=== PATIENT | female | born 1930 | race Caucasian/White ===

== ENCOUNTER 2017-12-15 18:17 | Inpatient (IN) | payer MEDICARE, OTHER ==
[~2017-12-15] VITALS: Ht 152.4 cm; Wt 45.4 kg
[2017-12-15] MEDS ORDERED: Sodium Chloride 500ML 500 ML IV ONE (19:00)
[2017-12-15 19:28] VITALS: BP 145/95
[2017-12-15 19:29] LABS: BASOPHILS % (AUTO) 1.3 % (0.0-2.0); EOSINOPHILS % (AUTO) 1.2 % (0.0-3.0); HEMATOCRIT 44.9 % (37.0-47.0); HEMOGLOBIN 15.3 G/DL (12.0-16.0); LYMPHOCYTES % (AUTO) 24.2 % (20.0-45.0); MEAN CORPUSCULAR VOLUME 94 FL (80-99); MONOCYTES % (AUTO) 6.5 % (1.0-10.0); NEUTROPHILS % (AUTO) 66.8 % (45.0-75.0); PLATELET COUNT 208 K/UL (150-450); RED BLOOD COUNT 4.77 M/UL (4.20-5.40); RED CELL DISTRIBUTION WIDTH 11.5 % (11.6-14.8); WHITE BLOOD COUNT 6.7 K/UL (4.8-10.8)
[2017-12-15 19:35] VITALS: BP 123/47
[2017-12-15 19:49] LABS: ANION GAP 8 mmol/L (5-15); BLOOD UREA NITROGEN 27 mg/dL (7-18); CALCIUM 9.2 MG/DL (8.5-10.1); CARBON DIOXIDE 29 MMOL/L (21-32); CHLORIDE 104 MMOL/L (98-107); CREATININE 1.3 MG/DL (0.55-1.30); POTASSIUM 4.4 MMOL/L (3.5-5.1); SODIUM 141 MMOL/L (136-145)
[2017-12-15 20:13] LABS: ALANINE AMINOTRANSFERASE 50 U/L (12-78); ALBUMIN 3.8 G/DL (3.4-5.0); ALKALINE PHOSPHATASE 93 U/L (46-116); ASPARTATE AMINO TRANSFERASE 29 U/L (15-37); BILIRUBIN,TOTAL 0.3 MG/DL (0.2-1.0); CKMB 2.2 NG/ML (0.0-3.6); CREATINE KINASE 271 U/L (26-308)
[2017-12-15] MEDS ORDERED: Milk of Magnesia 30ml Ud ORAL PRN (20:30)
[2017-12-15] MEDS ORDERED: Zolpidem 5mg tab ORAL PRN (20:30)
[2017-12-15 20:49] LABS: APPEARANCE,URINE CLEAR; BILIRUBIN, URINE NEGATIVE (NEGATIVE); GLUCOSE, URINE (UA) NEGATIVE (NEGATIVE); KETONES,URINE NEGATIVE (NEGATIVE); LEUKOCYTE ESTERASE ,URINE 1+ (NEGATIVE); NITRITE,URINE NEGATIVE (NEGATIVE); PH,URINE 7 (4.5-8.0); PROTEIN,URINE NEGATIVE (NEGATIVE); UROBILINOGEN,URINE NORMAL MG/DL (0.0-1.0)
[2017-12-15 20:50] LABS: COLOR,URINE YELLOW
[2017-12-15 21:27] VITALS: BP 131/45
[2017-12-15 22:00] VITALS: BP 145/100
[2017-12-15] MEDS ORDERED: UNOBMED (22:02)
--- NOTE | 2017-12-15 22:26 | Emergency Room Report ---
History of Present Illness General Chief Complaint: Altered Mental Status Source: Family Member, Medical Record Present Illness HPI 87-year-old female presents ED for evaluation. Family at bedside states that patient is here because retirement facility would not accept her. Patient was transferred from [facility] to [facility]. [facility] would not accept the patient because she was "sick" and was complaining of pain. Daughter at bedside states that patient was transferred to [facility] because [place] is too far away for her to visit. Notes that patient has a UTI. States that patient was recently treated for UTI. Patient was also complaining of right arm pain. Denies any pain here. Denies any fevers or chills. Denies chest pain shortness of breath. No other aggravating relieving factors. Denies any other associated symptom Allergies: Coded Allergies: No Known Allergies (Unverified , 12/15/17) Patient History Past Medical History: HTN Past Surgical History: none Pertinent Family History: none Social History: Denies: smoking, alcohol use, drug use Last Menstrual Period: Post Now: No Immunizations: UTD Reviewed Nursing Documentation: PMH: Agreed, PSxH: Agreed Nursing Documentation-PMH Hx Hypertension: Yes Review of Systems All Other Systems: negative except mentioned in HPI Physical Exam Vital Signs Date Time Temp Pulse Resp B/P (MAP) Pulse Ox O2 Delivery O2 Flow Rate FiO2 12/15/17 18:36 98.8 100 20 157/129 99 Room Air 98.8 Sp02 EP Interpretation: reviewed, normal General Appearance: no apparent distress, alert, GCS 15, non-toxic Head: normocephalic, atraumatic Eyes: bilateral eye normal inspection, bilateral eye PERRL ENT: hearing grossly normal, normal pharynx, no angioedema, normal voice Neck: full range of motion, supple/symm/no masses Respiratory: chest non-tender, lungs clear, normal breath sounds, speaking full sentences Cardiovascular #1: regular rate, rhythm, no edema Cardiovascular #2: 2+ carotid (R), 2+ carotid (L), 2+ radial (R), 2+ radial (L) , 2+ dorsalis pedis (R), 2+ dorsalis pedis (L) Gastrointestinal: normal bowel sounds, non tender, soft, non-distended, no guarding, no rebound Rectal: deferred Genitourinary: normal inspection, no CVA tenderness Musculoskeletal: back normal, gait/station normal, normal range of motion, non- tender Neurologic: alert, oriented x3, responsive, motor strength/tone normal, sensory intact, speech normal Psychiatric: judgement/insight normal, memory normal, mood/affect normal, no suicidal/homicidal ideation Reflexes: 3+ bicep (R), 3+ bicep (L), 3+ tricep (R), 3+ tricep (L), 3+ knee (R) , 3+ knee (L) Skin: normal color, no rash, warm/dry, well hydrated Lymphatic: no adenopathy Medical Decision Making Diagnostic Impression: Primary Impression: Weakness Additional Impression: Encephalopathy ER Course Hospital Course 87-year-old female presenting to ED with generalized weakness. Differential retirement facility because she was "unstable" Differential diagnoses include: Pneumonia, UTI, sepsis, dehydration, SC/ unstable angina Clinical course Patient placed on stretcher. On community relations officer with stable vitals are ED course. After initial history and physical, I ordered labs, IV fluids, EKG, chest x-ray, blood cultures, UA. Labs - electrolytes ok, no leukocytosis, troponins negative, UA negative EKG - NSR, no acute ischemic changes interpreted by me CXR - no acute process Case discussed with Dr Bush and they agreed to admit patient to their service for further care and support I feel this is a highly complex case requiring extensive working including EKG/ Rhythm strip, Xray/CT/US, Blood/urine lab work, repeat exams while in ED, and administration of strong opiates/narcotics for pain control, admission to hospital or close patient follow up. Diagnosis - encephalopathy, generalized weakness Patient admitted to floor in serious condition Labs Test 12/15/17 19:13 12/15/17 20:36 White Blood Count 6.7 K/UL (4.8-10.8) Red Blood Count 4.77 M/UL (4.20-5.40) Hemoglobin 15.3 G/DL (12.0-16.0) Hematocrit 44.9 % (37.0-47.0) Mean Corpuscular Volume 94 FL (80-99) Mean Corpuscular Hemoglobin 32.1 PG (27.0-31.0) Mean Corpuscular Hemoglobin Concent 34.2 G/DL (32.0-36.0) Red Cell Distribution Width 11.5 % (11.6-14.8) Platelet Count 208 K/UL (150-450) Mean Platelet Volume 7.4 FL (6.5-10.1) Neutrophils (%) (Auto) 66.8 % (45.0-75.0) Lymphocytes (%) (Auto) 24.2 % (20.0-45.0) Monocytes (%) (Auto) 6.5 % (1.0-10.0) Eosinophils (%) (Auto) 1.2 % (0.0-3.0) Basophils (%) (Auto) 1.3 % (0.0-2.0) Sodium Level 141 MMOL/L (136-145) Potassium Level 4.4 MMOL/L (3.5-5.1) Chloride Level 104 MMOL/L (98-107) Carbon Dioxide Level 29 MMOL/L (21-32) Anion Gap 8 mmol/L (5-15) Blood Urea Nitrogen 27 mg/dL (7-18) Creatinine 1.3 MG/DL (0.55-1.30) Estimat Glomerular Filtration Rate mL/min (>60) Glucose Level 114 MG/DL (74-106) Lactic Acid Level 1.40 mmol/L (0.66-2.22) Calcium Level 9.2 MG/DL (8.5-10.1) Total Bilirubin 0.3 MG/DL (0.2-1.0) Aspartate Amino Transf (AST/SGOT) 29 U/L (15-37) Alanine Aminotransferase (ALT/SGPT) 50 U/L (12-78) Alkaline Phosphatase 93 U/L (46-116) Total Creatine Kinase 271 U/L (26-308) Creatine Kinase MB 2.2 NG/ML (0.0-3.6) Creatine Kinase MB Relative Index 0.8 Troponin I 0.005 ng/mL (0.000-0.056) Pro-B-Type Natriuretic Peptide 138 pg/mL (0-125) Total Protein 7.5 G/DL (6.4-8.2) Albumin 3.8 G/DL (3.4-5.0) Globulin 3.7 g/dL Albumin/Globulin Ratio 1.0 (1.0-2.7) Urine Color Yellow Urine Appearance Clear Urine pH 7 (4.5-8.0) Urine Specific [place] 1.010 (1.005-1.035) Urine Protein Negative (NEGATIVE) Urine Glucose (UA) Negative (NEGATIVE) Urine Ketones Negative (NEGATIVE) Urine Occult Blood Negative (NEGATIVE) Urine Nitrite Negative (NEGATIVE) Urine Bilirubin Negative (NEGATIVE) Urine Urobilinogen Normal MG/DL (0.0-1.0) Urine Leukocyte Esterase 1+ (NEGATIVE) Urine RBC 0-2 /HPF (0 - 2) Urine WBC 0-2 /HPF (0 - 2) Urine Squamous Epithelial Cells Occasional /LPF Urine Bacteria None /HPF (NONE) EKG Diagnostic Results Rate: normal Rhythm: NSR ST Segments: no acute changes ASA given to the pt in ED: No Rhythm Strip Diag. Results EP Interpretation: yes Rhythm: NSR, no PVC's, no ectopy Chest X-Ray Diagnostic Results Chest X-Ray Diagnostic Results : Chest X-Ray Ordered: Yes # of Views/Limited/Complete: 1 View Indication: Chest Pain EP Interpretation: Yes Interpretation: no consolidation, no effusion, no pneumothorax, no acute cardiopulmonary disease Impression: No acute disease Electronically Signed by: Electronically signed by Lalo Falcon MD Last Vital Signs Date Time Temp Pulse Resp B/P (MAP) Pulse Ox O2 Delivery O2 Flow Rate FiO2 12/15/17 21:27 98.8 90 21 131/45 100 Room Air 98.8 Status: improved Disposition: ADMITTED INPATIENT Condition: Serious Referrals: NON PHYSICIAN (PCP) LALO FALCON M.D. Dec 15, 2017 22:26
[2017-12-16] VITALS (7 sets, daily range): BP systolic 125–153; BP diastolic 52–111
[2017-12-16 08:38] LABS: ANION GAP 9 mmol/L (5-15); BLOOD UREA NITROGEN 19 mg/dL (7-18); CARBON DIOXIDE 26 MMOL/L (21-32); CHLORIDE 108 MMOL/L (98-107); CREATININE 1.2 MG/DL (0.55-1.30); SODIUM 143 MMOL/L (136-145)
--- NOTE | 2017-12-16 09:36 | Diagnostic Imaging Report ---
Indication: Shortness of breath Technique: One view of the chest Comparison: none Findings: There is elevation the right hemidiaphragm with right basilar atelectasis. The lungs and pleural spaces are clear otherwise. Heart size is normal. The aorta is tortuous and calcified. Impression: Elevated right hemidiaphragm with right basilar atelectasis No acute process otherwise
--- NOTE | 2017-12-16 10:18 | History & Physical ---
History and Physical History & Physicial HP dictated # [id number] RASHEED CHONG Dec 16, 2017 10:18
--- NOTE | 2017-12-16 11:20 | Consultation ---
History of Present Illness General Date patient seen: Dec 16, 2017 Chief Complaint: Altered Mental Status Present Illness HPI 87 yo female with hx of recurrent uti and dementia pw ams and agitation. the pt has cognitive impairment and is yelling. unable to provide history. poor insight and judgement. the pt perseverated that she is hungry and wants to have more food. Allergies: Coded Allergies: No Known Allergies (Unverified , 12/15/17) Medication History Miscellaneous Medications Unable to Obtain Medications (Unable To Obtain Meds), (Reported) Patient History Limited by: medical condition History Provided By: Patient, Medical Record, PMD Healthcare decision maker N Resuscitation status Full Code Advanced Directive on File No Past Medical/Surgical History Past Medical/Surgical History: (1) Weakness (2) Encephalopathy Review of Systems Psychiatric: Reports: see HPI, prior hx, anxiety, depressed feelings, emotional problems, hallucinations Physical Exam General Appearance: no apparent distress, alert, confused, agitated Last 24 Hour Vital Signs Date Time Temp Pulse Resp B/P (MAP) Pulse Ox O2 Delivery O2 Flow Rate FiO2 12/16/17 08:00 96.8 87 18 127/77 100 96.8 12/16/17 04:44 97.4 76 18 143/78 100 97.4 12/16/17 00:17 97.6 66 17 149/78 94 97.6 12/15/17 22:06 97.5 100 17 145/100 97 Room Air 97.5 12/15/17 22:00 97.5 100 17 145/100 97 97.5 12/15/17 21:27 98.8 90 21 131/45 100 Room Air 98.8 12/15/17 19:35 98.8 88 21 123/47 98 Room Air 98.8 12/15/17 19:28 98.8 88 21 145/95 100 Room Air 98.8 12/15/17 18:36 98.8 100 20 157/129 99 Room Air 98.8 Intake and Output 12/15/17 12/16/17 19:00 07:00 Intake Total 240 ml Output Total 250 ml Balance -10 ml Intake Oral 240 ml Output Urine Total 250 ml # Voids 3 Laboratory Tests Test 12/15/17 19:13 12/15/17 20:36 12/16/17 05:00 White Blood Count 6.7 K/UL (4.8-10.8) Red Blood Count 4.77 M/UL (4.20-5.40) Hemoglobin 15.3 G/DL (12.0-16.0) Hematocrit 44.9 % (37.0-47.0) Mean Corpuscular Volume 94 FL (80-99) Mean Corpuscular Hemoglobin 32.1 PG (27.0-31.0) H Mean Corpuscular Hemoglobin Concent 34.2 G/DL (32.0-36.0) Red Cell Distribution Width 11.5 % (11.6-14.8) L Platelet Count 208 K/UL (150-450) Mean Platelet Volume 7.4 FL (6.5-10.1) Neutrophils (%) (Auto) 66.8 % (45.0-75.0) Lymphocytes (%) (Auto) 24.2 % (20.0-45.0) Monocytes (%) (Auto) 6.5 % (1.0-10.0) Eosinophils (%) (Auto) 1.2 % (0.0-3.0) Basophils (%) (Auto) 1.3 % (0.0-2.0) Sodium Level 141 MMOL/L (136-145) 143 MMOL/L (136-145) Potassium Level 4.4 MMOL/L (3.5-5.1) 4.0 MMOL/L (3.5-5.1) Chloride Level 104 MMOL/L (98-107) 108 MMOL/L (98-107) H Carbon Dioxide Level 29 MMOL/L (21-32) 26 MMOL/L (21-32) Anion Gap 8 mmol/L (5-15) 9 mmol/L (5-15) Blood Urea Nitrogen 27 mg/dL (7-18) H 19 mg/dL (7-18) H Creatinine 1.3 MG/DL (0.55-1.30) 1.2 MG/DL (0.55-1.30) Estimat Glomerular Filtration Rate mL/min (>60) mL/min (>60) Glucose Level 114 MG/DL (74-106) H 94 MG/DL (74-106) Lactic Acid Level 1.40 mmol/L (0.66-2.22) Calcium Level 9.2 MG/DL (8.5-10.1) 9.0 MG/DL (8.5-10.1) Total Bilirubin 0.3 MG/DL (0.2-1.0) Aspartate Amino Transf (AST/SGOT) 29 U/L (15-37) Alanine Aminotransferase (ALT/SGPT) 50 U/L (12-78) Alkaline Phosphatase 93 U/L (46-116) Total Creatine Kinase 271 U/L (26-308) Creatine Kinase MB 2.2 NG/ML (0.0-3.6) Creatine Kinase MB Relative Index 0.8 Troponin I 0.005 ng/mL (0.000-0.056) Pro-B-Type Natriuretic Peptide 138 pg/mL (0-125) H Total Protein 7.5 G/DL (6.4-8.2) Albumin 3.8 G/DL (3.4-5.0) Globulin 3.7 g/dL Albumin/Globulin Ratio 1.0 (1.0-2.7) Urine Color Yellow Urine Appearance Clear Urine pH 7 (4.5-8.0) Urine Specific [place] 1.010 (1.005-1.035) Urine Protein Negative (NEGATIVE) Urine Glucose (UA) Negative (NEGATIVE) Urine Ketones Negative (NEGATIVE) Urine Occult Blood Negative (NEGATIVE) Urine Nitrite Negative (NEGATIVE) Urine Bilirubin Negative (NEGATIVE) Urine Urobilinogen Normal MG/DL (0.0-1.0) Urine Leukocyte Esterase 1+ (NEGATIVE) H Urine RBC 0-2 /HPF (0 - 2) Urine WBC 0-2 /HPF (0 - 2) Urine Squamous Epithelial Cells Occasional /LPF Urine Bacteria None /HPF (NONE) Hemoglobin A1c 6.8 % (4.3-6.0) H Thyroid Stimulating Hormone (TSH) 0.315 uiU/mL (0.358-3.740) Height (Feet): 5 Height (Inches): 0.00 Weight (Pounds): 100 Medications Current Medications Medications (Trade) Dose Ordered Sig/Snehal Route PRN Reason Start Time Stop Time Status Last Admin Dose Admin Acetaminophen (Tylenol) 650 mg Q4H PRN ORAL Mild Pain (Pain Scale 1-3) 12/15/17 20:30 01/14/18 20:29 Dextrose (Dextrose 50%) STAT PRN IV Hypoglycemia 12/15/17 20:30 01/14/18 20:29 Divalproex Sodium (Depakote) 125 mg TID ORAL 12/16/17 13:00 01/15/18 12:59 UNV Insulin Aspart (NovoLOG) BEFORE MEALS AND HS SUBQ 12/16/17 11:30 01/15/18 11:29 Magnesium Hydroxide (Mom) 30 ml HSPRN PRN ORAL Constipation 12/15/17 20:30 01/14/18 20:29 Quetiapine Fumarate (SEROquel) 25 mg Q4H PRN ORAL Agitation 12/16/17 11:00 01/15/18 10:59 12/16/17 11:10 Sodium Chloride 1,000 ml @ 75 mls/hr [id number] IV 12/15/17 21:29 01/14/18 21:28 12/15/17 23:13 Zolpidem Tartrate (Ambien) 5 mg HSPRN PRN ORAL Insomnia 12/15/17 20:30 12/22/17 20:29 Assessment/Plan Status: stable, progressing Assessment/Plan encephalopathy Dementia with behavioral disturbance -seroquel prn -depakote -the pt lacks capacity to leave Jimi Alvarado M.D. Dec 16, 2017 11:20
[2017-12-16] MEDS: NovoLOG Insulin Flexpen SUBQ SCH ×3 (12:34→20:41)
--- NOTE | 2017-12-16 19:45 | History and Physical Report ---
DATE OF ADMISSION: 12/15/2017 CHIEF COMPLAINT: The patient has agitation and failure to thrive. HISTORY OF PRESENT ILLNESS: This is an 87-year-old female, who was recently in [facility]. She was supposed to go to [facility], but when they saw her, they felt that she was very sick, complaining of pain and was agitated and so the patient was sent to the ER for evaluation. The patient was admitted last night for those complaints. PAST MEDICAL HISTORY: The patient has a history of hypertension and likely dementia. MEDICATIONS: Reviewed. SOCIAL HISTORY: No history of smoking or alcohol abuse. ALLERGIES: No known drug allergies. REVIEW OF SYSTEMS: The patient cannot give much information. PHYSICAL EXAMINATION: GENERAL: The patient is an elderly female, in no acute distress. She a screams and shouts little bit and asking the door to be opened, although the door was opened. VITAL SIGNS: Blood pressure 157/129, pulse is 100, respiratory rate is 20, and temperature 98.8 degrees. HEENT: Salix conjunctivae. Anicteric sclerae. NECK: Supple. LUNGS: Clear to auscultation. HEART: S1 and S2 without murmurs or rubs. ABDOMEN: Soft and nontender. EXTREMITIES: No cyanosis or edema. LABORATORY AND DIAGNOSTIC FINDINGS: The CBC shows a WBC of 6.7, hematocrit is 44.9, hemoglobin is 15.3, and platelets 208,000. The chemistry panel shows a sodium of 143, potassium 4, chloride 108, BUN is 19 and creatinine 1.2. Hemoglobin A1c is 6.8. TSH is 0.315. ASSESSMENT: This is an 87-year-old female who is admitted with some agitation, very likely has dementia and she appears to have diabetes based on high hemoglobin A1c, although fasting sugar is reasonable. PLAN: The patient will be seen by psychiatry. She will be hydrated. She does have some elevation of the creatinine. So, she may have some underlying acute renal failure as a result of prerenal azotemia. She could have also a chronic kidney disease from atherosclerosis disease. Plans for the disposition of the patient will be made in the next couple of days. Tejas Bush M.D. DR: FERNY JOB#: [id number] CC:
[2017-12-16] MEDS ORDERED: LORazepam Inj 2mg/ml 1ml IM ONE (20:00)
[2017-12-17] MEDS: NovoLOG Insulin Flexpen SUBQ SCH ×4 (06:14→21:00)
[2017-12-17 08:26] VITALS: BP 144/69
--- NOTE | 2017-12-17 11:35 | Cardiology Report ---
APPROVED REPORT EKG Measurement Heart [id number] Normal sinus rhythm Left axis deviation Low voltage QRS Incomplete right bundle branch block Cannot rule out Anterior infarct, age undetermined Abnormal ECG
[2017-12-17 12:00] VITALS: BP 138/64
[2017-12-17 16:00] VITALS: BP 145/80
--- NOTE | 2017-12-17 16:59 | General Progress Note ---
Assessment/Plan Problem List: (1) Encephalopathy ICD Codes: G93.40 - Encephalopathy, unspecified SNOMED: 94008486 (2) Weakness ICD Codes: R53.1 - Weakness SNOMED: 39067843 (3) Agitation ICD Codes: R45.1 - Restlessness and agitation SNOMED: 790591814 (4) HTN (hypertension) ICD Codes: I10 - Essential (primary) hypertension SNOMED: 54361306 (5) ARF (acute renal failure) ICD Codes: N17.9 - Acute kidney failure, unspecified SNOMED: 64264726 Assessment/Plan DC IV fluid BMP in AM psych F/U discussed with dr Tarango Subjective Allergies: Coded Allergies: No Known Allergies (Unverified , 12/15/17) Subjective less agitated however pulled his IVs Objective Last 24 Hour Vital Signs Date Time Temp Pulse Resp B/P (MAP) Pulse Ox O2 Delivery O2 Flow Rate FiO2 12/17/17 16:00 97.7 114 22 98 97.7 12/17/17 12:00 Room Air 12/17/17 12:00 98.1 86 20 138/64 99 98.1 12/17/17 08:26 98.4 87 19 144/69 97 Room Air 98.4 12/16/17 21:08 97.7 113 18 143/84 97 97.7 12/16/17 17:27 128 125/52 Intake and Output 12/16/17 12/17/17 19:00 07:00 Intake Total 240 ml 855 ml Balance 240 ml 855 ml Intake Oral 240 ml 180 ml IV Total 675 ml # Voids 3 3 Height (Feet): 5 Height (Inches): 0.00 Weight (Pounds): 100 Cardiovascular: normal rate Respiratory/Chest: lungs clear Edema: no edema noted RASHEED Spaulding Dec 17, 2017 16:59
[2017-12-17 20:00] VITALS: BP 158/86
[2017-12-17] MEDS ORDERED: LIPITOR80 MG ORAL (20:47)
[2017-12-17] MEDS ORDERED: ZYPREXA2.5 MG ORAL ×2 (20:47)
[2017-12-17] MEDS ORDERED: WARFARIN SODIUM1 MG ORAL (20:47)
[2017-12-17] MEDS ORDERED: LOSARTAN POTASS25 M1 PO (20:47)
[2017-12-17] MEDS ORDERED: GABAPENTIN300 MG ORAL (20:47)
--- NOTE | 2017-12-17 21:00 | Progress Note ---
DATE: 12/17/2017 SUBJECTIVE: The patient is calmer, less agitated, more cooperative, not yelling or screaming, more manageable on Seroquel. No adverse reactions. MENTAL STATUS EXAMINATION: The patient is confused and disoriented. Mood is agitated. Affect is constricted. Congruent mood. Thought process is concrete. Thought content, no suicidal or homicidal ideation. ASSESSMENT: 1. Dementia with behavior disturbance. 2. Encephalopathy. PLAN: We will continue the Ativan and Seroquel p.r.n. We will continue to follow and readjust the medications. Jimi Tarango M.D. DR: Brittaney JOB#: [id number] CC:
[2017-12-18] VITALS: BP 121/73
[2017-12-18 04:00] VITALS: BP 150/80
[2017-12-18] MEDS: NovoLOG Insulin Flexpen SUBQ SCH ×4 (06:20→20:51)
[2017-12-18 07:35] LABS: ANION GAP 15 mmol/L (5-15); BLOOD UREA NITROGEN 17 mg/dL (7-18); CALCIUM 9.2 MG/DL (8.5-10.1); CARBON DIOXIDE 28 MMOL/L (21-32); CHLORIDE 104 MMOL/L (98-107); CREATININE 1.1 MG/DL (0.55-1.30); POTASSIUM 4.2 MMOL/L (3.5-5.1); SODIUM 147 MMOL/L (136-145)
[2017-12-18 09:00] VITALS: BP 126/62
[2017-12-18 11:49] VITALS: BP 150/80
[2017-12-18] MEDS ORDERED: Haloperidol 5mg/ml Inj IM ONE (13:00)
[2017-12-18] MEDS ORDERED: LORazepam Inj 2mg/ml 1ml IM ONE (13:00)
[2017-12-18 15:51] VITALS: BP 143/69
[2017-12-18 21:00] VITALS: BP 139/67
[2017-12-19 04:00] VITALS: BP 140/66
[2017-12-19] MEDS: NovoLOG Insulin Flexpen SUBQ SCH ×4 (06:30→21:00)
[2017-12-19 09:00] VITALS: BP 115/69
[2017-12-19] MEDS ORDERED: LORazepam Inj 2mg/ml 1ml IM ONE (12:15)
[2017-12-19] MEDS ORDERED: DiphenhydrAMINE 50mg/ml Inj IM ONE (12:15)
[2017-12-19] MEDS ORDERED: Haloperidol 5mg/ml Inj IM ONE (12:15)
--- NOTE | 2017-12-19 13:28 | General Progress Note ---
Assessment/Plan Problem List: (1) Encephalopathy ICD Codes: G93.40 - Encephalopathy, unspecified SNOMED: 75927136 (2) Weakness ICD Codes: R53.1 - Weakness SNOMED: 60478421 (3) Agitation ICD Codes: R45.1 - Restlessness and agitation SNOMED: 089945137 (4) HTN (hypertension) ICD Codes: I10 - Essential (primary) hypertension SNOMED: 79588852 (5) ARF (acute renal failure) ICD Codes: N17.9 - Acute kidney failure, unspecified SNOMED: 72718882 Assessment/Plan follow labs psych F/U discussed with dr Tarango Subjective Date patient seen: Dec 18, 2017 Allergies: Coded Allergies: No Known Allergies (Unverified , 12/15/17) Subjective pt was seen on 12/18 note was missing Objective Last 24 Hour Vital Signs Date Time Temp Pulse Resp B/P (MAP) Pulse Ox O2 Delivery O2 Flow Rate FiO2 12/19/17 11:35 Room Air 12/19/17 09:00 96.4 92 19 115/69 98 96.4 12/18/17 21:00 97.5 95 16 139/67 99 97.5 12/18/17 15:51 98.2 121 19 143/69 99 98.2 Intake and Output 12/18/17 12/19/17 19:00 07:00 Intake Total 240 ml Balance 240 ml Intake Oral 240 ml # Voids 1 2 # Bowel Movements 1 Height (Feet): 5 Height (Inches): 0.00 Weight (Pounds): 100 Cardiovascular: normal rate Respiratory/Chest: lungs clear RASHEED CHONG Dec 19, 2017 13:28
--- NOTE | 2017-12-19 13:52 | General Progress Note ---
Assessment/Plan Problem List: (1) Encephalopathy ICD Codes: G93.40 - Encephalopathy, unspecified SNOMED: 09538069 (2) Weakness ICD Codes: R53.1 - Weakness SNOMED: 18225000 (3) Agitation ICD Codes: R45.1 - Restlessness and agitation SNOMED: 496852682 (4) HTN (hypertension) ICD Codes: I10 - Essential (primary) hypertension SNOMED: 37695245 (5) ARF (acute renal failure) ICD Codes: N17.9 - Acute kidney failure, unspecified SNOMED: 65375600 Assessment/Plan cont as is will discuss with Dr Tarango Subjective Allergies: Coded Allergies: No Known Allergies (Unverified , 12/15/17) Subjective In NAD Objective Last 24 Hour Vital Signs Date Time Temp Pulse Resp B/P (MAP) Pulse Ox O2 Delivery O2 Flow Rate FiO2 12/19/17 11:35 Room Air 12/19/17 09:00 96.4 92 19 115/69 98 96.4 12/18/17 21:00 97.5 95 16 139/67 99 97.5 12/18/17 15:51 98.2 121 19 143/69 99 98.2 Intake and Output 12/18/17 12/19/17 19:00 07:00 Intake Total 240 ml Balance 240 ml Intake Oral 240 ml # Voids 1 2 # Bowel Movements 1 Height (Feet): 5 Height (Inches): 0.00 Weight (Pounds): 100 Cardiovascular: normal rate Respiratory/Chest: lungs clear RASHEED CHONG Dec 19, 2017 13:52
[2017-12-19 15:54] VITALS: BP 119/65
[2017-12-19] MEDS ORDERED: Tubing IV Secondary IV ONE (17:56)
[2017-12-19] MEDS ORDERED: 1/2 NS 1000ml IV ONE (17:56)
[2017-12-19 20:00] VITALS: BP 133/90
[2017-12-20] VITALS: BP 127/89
[2017-12-20] MEDS: NovoLOG Insulin Flexpen SUBQ SCH ×3 (05:58→16:37)
[2017-12-20 08:00] VITALS: BP 149/63
[2017-12-20 08:01] VITALS: BP 135/71
[2017-12-20] MEDS ORDERED: NOVOLOG100 UNITS1 SUBQ (10:00)
[2017-12-20] MEDS ORDERED: SEROQUEL25 MG ORAL (10:00)
[2017-12-20] MEDS ORDERED: DEPAKOTE250 MG ORAL (10:00)
--- NOTE | 2017-12-20 10:05 | Consultation ---
Consult Note Assessment/Plan Dc dictated # [id number] RASHEED CHONG Dec 20, 2017 10:05
[2017-12-20 12:05] VITALS: BP 150/69
[2017-12-20 16:00] VITALS: BP 155/93
--- NOTE | 2017-12-20 21:45 | Discharge Summary ---
DATE OF ADMISSION: 12/15/2017 DATE OF DISCHARGE: 12/20/2017 CHIEF COMPLAINT: The patient has been agitated and has failure to thrive. HISTORY OF PRESENT ILLNESS: This is an 87-year-old female, who was recently in [place] [facility]. She was supposed to go to [facility], but when they evaluated her, they felt that she was very sick, complaining of pain and she was agitated and was sent to the emergency room at [facility]. The patient was admitted for diagnoses of encephalopathy, agitation, and also patient was found to be diabetic. HOSPITAL COURSE: The patient was was seen by psychiatrist, Dr. Tarango. The patient was started on Depakote and also p.r.n. Seroquel was added. Her symptoms improved. She was able to eat. She was kept on sliding scale insulin and eventually she was sent to half-way facility in stable condition. DISCHARGE DIAGNOSES: 1. Agitation and encephalopathy. 2. Failure to thrive. 3. Poor p.o. intake improved. 4. History of hypertension. 5. History of diabetes. Tejas Bush M.D. DR: Stephanie JOB#: [id number] CC:
--- NOTE | 2017-12-20 22:27 | General Progress Note ---
Assessment/Plan Assessment/Plan 1. Dementia with behavior disturbance. 2. Encephalopathy. PLAN: We will continue the Ativan and Seroquel p.r.n. We will continue to follow and readjust the medications. Subjective Date patient seen: Dec 18, 2017 Neurologic/Psychiatric: Reports: anxiety, depressed, emotional problems Allergies: Coded Allergies: No Known Allergies (Unverified , 12/15/17) Objective Last 24 Hour Vital Signs Date Time Temp Pulse Resp B/P (MAP) Pulse Ox O2 Delivery O2 Flow Rate FiO2 12/20/17 16:00 97.9 103 18 155/93 97 97.9 12/20/17 12:05 97.3 105 19 150/69 98 Room Air 97.3 12/20/17 08:01 98.6 92 19 135/71 97 Room Air 98.6 12/20/17 08:00 97.4 18 149/63 97 Room Air 97.4 12/20/17 04:00 Room Air 12/20/17 00:00 97.3 95 20 127/89 96 Room Air 97.3 Intake and Output 12/19/17 12/20/17 19:00 07:00 Intake Total 340 ml 240 ml Balance 340 ml 240 ml Intake Oral 340 ml 240 ml # Voids 3 # Bowel Movements 1 Height (Feet): 5 Height (Inches): 0.00 Weight (Pounds): 100 General Appearance: no apparent distress, alert, confused, agitated Jimi Tarango M.D. Dec 20, 2017 22:26
--- NOTE | 2017-12-20 22:28 | Psych Consult Progress Note ---
Psych Consult Progress Note Consult 12/19/17 Vital Signs Last 24 Hour Vital Signs Date Time Temp Pulse Resp B/P (MAP) Pulse Ox O2 Delivery O2 Flow Rate FiO2 12/20/17 16:00 97.9 103 18 155/93 97 97.9 12/20/17 12:05 97.3 105 19 150/69 98 Room Air 97.3 12/20/17 08:01 98.6 92 19 135/71 97 Room Air 98.6 12/20/17 08:00 97.4 18 149/63 97 Room Air 97.4 12/20/17 04:00 Room Air 12/20/17 00:00 97.3 95 20 127/89 96 Room Air 97.3 Problems: (1) Dementia with behavioral disturbance Status: Acute Assessment & Plan: 1. Dementia with behavior disturbance. 2. Encephalopathy. PLAN: We will continue the Ativan and Seroquel p.r.n. We will continue to follow and readjust the medications. (2) Encephalopathy (3) Agitation (4) HTN (hypertension) (5) ARF (acute renal failure) (6) Hypernatremia Jimi Tarango M.D. Dec 20, 2017 22:28
== END 2017-12-20 17:00 | DRG 71 ==
LOC: EMR 19:35 → 4W 20:35 → EDBEDREQ 21:20 → 4W 12-20 11:28
DX: G93.40 Encephalopathy, unspecified (principal); N17.9 Acute kidney failure, unspecified; E87.0 Hyperosmolality and hypernatremia; F03.91 Unspecified dementia, unspecified severity, with behavioral disturbance; E11.9 Type 2 diabetes mellitus without complications; N18.9 Chronic kidney disease, unspecified; R45.1 Restlessness and agitation; R53.1 Weakness; R62.7 Adult failure to thrive
CPT/HCPCS: 36415; 51702; 71045; 80048; 80053; 81003; 82550; 82553; 82962; 83036; 83605; 83880; 84443; 84484; 85025; 87040; 87081; 93005; 99285; J1815